=== PATIENT | female | born 1940 | race Caucasian/White ===

== ENCOUNTER → 2016-08-29 | Outpatient (CLI) | payer MEDICARE, BC | LOC: GMAB 11:44 | PROVIDERS: ATTEND Family Medicine | DX: I10 Essential (primary) hypertension (principal) ==

== ENCOUNTER → 2017-11-22 | Outpatient (CLI) | payer MEDICARE, BC ==
--- NOTE | 2017-11-22 11:13 | US ---
THYROID ULTRASOUND CLINICAL INFORMATION: Thyroid nodules. TECHNIQUE: Standard bilateral thyroid lobe transcutaneous scans 2-D and Doppler. COMPARISON: Baseline study at this facility. FINDINGS: Thyroid size: Right lobe 5.8 x 2.8 x 2.0 cm. Left lobe 4.1 x 2.0 x 1.3 cm. Isthmus 1.9 mm. Texture: Heterogeneous. Estimated total number of nodules >/=1 cm: 4 Number of spongiform nodules >/=2 cm not described below (TR1): 0 Number of mixed cystic and solid nodules >/=1.5 cm not described below (TR2): 0 Nodule #: 1 Maximum size: 3.4 cm; All dimensions 2.5 x 2.0 cm Location: right; mid Composition: solid/almost completely solid (2) Echogenicity: hypoechoic (2) Shape: not omatke-jkri-gljf (0) Margins: smooth (0) Echogenic foci: none (0) ACR TI-RADS total points: 4. ACR TI-RADS risk category: TR4 (4-6 points) ACR TI-RADS recommendation: Ultrasound-guided fine needle aspiration Nodule #: 2 Maximum size: 1.4 cm; All dimensions 1.3 x 1.2 cm Location: right; lower Composition: solid/almost completely solid (2) Echogenicity: hypoechoic (2) Shape: dgbjer-zgrx-jxqr(3) Margins: smooth (0) Echogenic foci: none (0) ACR TI-RADS total points: 7. ACR TI-RADS risk category: TR5 (>/=7 points) ACR TI-RADS recommendation: Ultrasound-guided fine needle aspiration Nodule #: 3 Maximum size: 1 cm; All dimensions 0.8 x 0.6 cm Location: left; mid Composition: solid/almost completely solid (2) Echogenicity: hypoechoic (2) Shape: not vqwimk-[id number]-talp (0) Margins: smooth (0) Echogenic foci: none (0) ACR TI-RADS total points: 4. ACR TI-RADS risk category: TR4 (4-6 points) ACR TI-RADS recommendation: Follow-up ultrasound in 1 year Nodule #: 4 Maximum size: 1 cm; All dimensions 0.7 x 0.6 cm Location: left; mid Composition: cystic/almost completely cystic (0) Echogenicity: hypoechoic (2) Shape: not vhvobk-dlff-imdj (0) Margins: smooth (0) Echogenic foci: none (0) ACR TI-RADS total points: 2. ACR TI-RADS risk category: TR2 (2 points) ACR TI-RADS recommendation: No further follow-up IMPRESSION 1. 3.4 cm hypoechoic solid nodule in the mid right lobe with well-defined borders, parallel orientation, and no calcifications. ACR TI RADS risk category TR 4. Ultrasound-guided fine-needle aspiration sampling recommended. 2. 1.4 cm hypoechoic solid nodule in the lower right lobe with taller than wide orientation. Well-defined borders and no calcifications. ACR TI RADS risk category TR 5. Ultrasound-guided fine-needle aspiration sampling recommended 3. 1 cm hypoechoic solid nodule in the mid left lobe with parallel orientation, well-defined borders, and no calcifications. ACR TI RADS risk category TR 4. One year ultrasound follow-up recommended. 4. 1 cm mostly cystic hypoechoic nodule in the mid left lobe with parallel orientation, well-defined borders, and no calcifications. ACR TI RADS risk category TR 2. No follow-up recommended. ACR TI-RADS recommendations: TR5 (>/=7 points) - FNA if >/=1 cm, follow-up if 0.5 - 0.9 cm every year for 5 years TR4 (4-6 points) - FNA if >/=1.5 cm, follow-up if 1 - 1.4 cm in 1, 2, 3 and 5 years TR3 (3 points) - FNA if >/=2.5 cm, follow -up if 1.5 - 2.4 cm in 1, 3 and 5 years TR2 (2 points) and TR1 (0 points) - No FNA or follow-up * ACR TI-RADS recommends that no more than two nodules with the highest ACR TI-RADS total point should be biopsied and no more than four nodules should be followed. Electronically signed by: Berhane Prasad MD 11/22/2017 11:12 AM CDT
== END | disposition home or self-care (01) ==
LOC: US 09:00
PROVIDERS: ATTEND Family Medicine
DX: E04.1 Nontoxic single thyroid nodule (principal)

== ENCOUNTER 2018-02-12 14:54 | Emergency (ER) | payer BC, MEDICARE, OTHER ==
[2018-02-12] MEDS ORDERED: BACITRACIN 0.9 GM UD PCKT ONE (15:44)
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
[2018-02-12 17:47] VITALS: BP 136/71; O2SAT 98
[2018-02-12 18:01] VITALS: TEMP 97.8
== END 2018-02-12 18:00 | disposition home or self-care (01) ==
LOC: ER 14:54
DX: M54.2 Cervicalgia (principal); S51.811A Laceration without foreign body of right forearm, initial encounter; M47.812 Spondylosis without myelopathy or radiculopathy, cervical region; I51.9 Heart disease, unspecified; E07.9 Disorder of thyroid, unspecified; Z88.0 Allergy status to penicillin; Y92.410 Unspecified street and highway as the place of occurrence of the external cause; V47.5XXA Car driver injured in collision with fixed or stationary object in traffic accident, initial encounter
CPT/HCPCS: 70450; 71045; 72125; J3490

== ENCOUNTER → 2018-12-17 | Outpatient (CLI) | payer MEDICARE, BC | LOC: GMAE 10:54 | PROVIDERS: ATTEND Family Medicine | DX: E89.0 Postprocedural hypothyroidism (principal); I10 Essential (primary) hypertension; E78.2 Mixed hyperlipidemia ==

== ENCOUNTER → 2019-02-16 | Outpatient (CLI) | payer MEDICARE, BC | LOC: SL 20:23 | PROVIDERS: ATTEND Family Medicine | DX: G47.33 Obstructive sleep apnea (adult) (pediatric) (principal) ==

== ENCOUNTER → 2019-12-22 | Outpatient (CLI) | payer MEDICARE, BC | LOC: GMAE 11:31 | PROVIDERS: ATTEND Family Medicine | DX: E03.9 Hypothyroidism, unspecified (principal); I10 Essential (primary) hypertension; E78.2 Mixed hyperlipidemia ==